=== PATIENT | male | born 1960 | race American Indian/Alaskan Native ===

== ENCOUNTER 2020-04-23 17:56 | Emergency (ER) | payer OTHER ==
[2020-04-23 18:11] VITALS: BP 147/112
[2020-04-23 20:10] LABS: Basophils # (Auto) 0.1 K/mm3 (0.0-0.1); Eosinophils % (Auto) 0.9 % (0.0-4.3); Hematocrit 41.4 % (35.5-45.6); Lymphocytes # (Auto) 1.5 K/mm3 (1.2-5.4); Lymphocytes % (Auto) 29.8 % (13.4-35.0); Mean Corpuscular HGB Conc 34 % (32-34); Mean Corpuscular Volume 90 fl (84-94); Monocytes # (Auto) 0.3 K/mm3 (0.0-0.8); Monocytes % (Auto) 6.3 % (0.0-7.3); Platelet Count 276 K/mm3 (140-440); Red Blood Count 4.61 M/mm3 (3.65-5.03); Red Cell Distribution Width 12.9 % (13.2-15.2)
[2020-04-23 20:31] LABS: BUN/Creatinine Ratio 7; Blood Urea Nitrogen 6 mg/dL (9-20); Calcium 9.9 mg/dL (8.4-10.2); Hemolysis Index 11
--- NOTE | 2020-04-23 20:53 | Emergency Department Report ---
ED General Adult HPI - General Chief complaint: Extremity Problem,Nontraumatic Stated complaint: SWELLING IN RT ARM,LEFT SIDED BODY PAIN Time Seen by Provider: 04/23/20 18:45 Source: patient Mode of arrival: Ambulatory Limitations: No Limitations - History of Present Illness Initial comments: Patient is a 60-year-old male presents emergency room with complaints of lymph nodes present to the left side of the neck have been there for a couple of days. He states it is causing pain. He denies any fever. He denies any vomiting, diarrhea, sore throat, difficulty breathing. Patient states that he also has swelling present to his intermittently for the last couple of years, he states he has had it drained a few times but it just keeps coming back. He denies any past medical history. No allergies to medications. - Related Data Previous Rx's Medication Instructions Recorded Last Taken Type Amoxicillin/Potassium Clav 1 each PO BID 10 Days #20 tablet 04/23/20 Unknown Rx [Augmentin 875-125 Tablet] Naproxen [EC-Naprosyn] 500 mg PO BID PRN #14 tablet. 04/23/20 Unknown Rx Prednisone [predniSONE 10 mg 10 mg PO .TAPER #1 tab.ds.pk 04/23/20 Unknown Rx (6-Day Pack, 21 Tabs)] Allergies Allergy/AdvReac Type Severity Reaction Status Date / Time No Known Allergies Allergy Verified 04/23/20 18:08 ED Review of Systems ROS: Stated complaint: SWELLING IN RT ARM,LEFT SIDED BODY PAIN Other details as noted in HPI Comment: All other systems reviewed and negative ED Past Medical Hx - Past Medical History Previous Medical History?: No - Surgical History Past Surgical History?: No - Social History Smoking Status: Current Every Day Smoker Substance Use Type: Alcohol - Medications Home Medications: Home Medications Medication Instructions Recorded Confirmed Last Taken Type Amoxicillin/Potassium Clav 1 each PO BID 10 Days #20 tablet 04/23/20 Unknown Rx [Augmentin 875-125 Tablet] Naproxen [EC-Naprosyn] 500 mg PO BID PRN #14 tablet. 04/23/20 Unknown Rx Prednisone [predniSONE 10 mg 10 mg PO .TAPER #1 tab.ds.pk 04/23/20 Unknown Rx (6-Day Pack, 21 Tabs)] ED Physical Exam - General Limitations: No Limitations General appearance: alert, in no apparent distress - Head Head exam: Present: atraumatic, normocephalic - Eye Eye exam: Present: normal appearance - ENT ENT exam: Present: normal orophraynx, mucous membranes moist - Neck Neck exam: Present: lymphadenopathy (two anterior cervical LAD with ttp, no erythema, no increased warmth, no fluctuance) - Respiratory Respiratory exam: Present: normal lung sounds bilaterally. Absent: respiratory distress, wheezes, rales, rhonchi, stridor, chest wall tenderness, accessory muscle use, decreased breath sounds, prolonged expiratory - Cardiovascular Cardiovascular Exam: Present: regular rate, normal rhythm, normal heart sounds. Absent: systolic murmur, diastolic murmur, rubs, gallop - Extremities Exam Extremities exam: Present: other (3 cm area of edema present to the right lateral elbow, no erythema, no increased warmth, FROM of the LUE, no ttp, neurovascularly intact) - Neurological Exam Neurological exam: Present: alert, oriented X3 - Psychiatric Psychiatric exam: Present: normal affect, normal mood - Skin Skin exam: Present: warm, dry ED Course Vital Signs 04/23/20 18:09 Temperature 98.1 F Pulse Rate 87 Respiratory 17 Rate Blood Pressure 147/112 O2 Sat by Pulse 99 Oximetry ED Medical Decision Making - Lab Data Result diagrams: 04/23/20 19:57 04/23/20 19:57 Lab Results 04/23/20 04/23/20 Range/Units 19:57 19:57 WBC 4.9 (4.5-11.0) K/mm3 RBC 4.61 (3.65-5.03) M/mm3 Hgb 14.0 (11.8-15.2) gm/dl Hct 41.4 (35.5-45.6) % MCV 90 (84-94) fl MCH 31 (28-32) pg MCHC 34 (32-34) % RDW 12.9 L (13.2-15.2) % Plt Count 276 (140-440) K/mm3 Lymph % (Auto) 29.8 (13.4-35.0) % Greer % (Auto) 6.3 (0.0-7.3) % Eos % (Auto) 0.9 (0.0-4.3) % Baso % (Auto) 1.0 (0.0-1.8) % Lymph # 1.5 (1.2-5.4) K/mm3 Greer # 0.3 (0.0-0.8) K/mm3 Eos # 0.0 (0.0-0.4) K/mm3 Baso # 0.1 (0.0-0.1) K/mm3 Seg Neutrophils % 62.0 (40.0-70.0) % Seg Neutrophils # 3.1 (1.8-7.7) K/mm3 Sodium 139 (137-145) mmol/L Potassium 4.3 (3.6-5.0) mmol/L Chloride 101.9 (98-107) mmol/L Carbon Dioxide 26 (22-30) mmol/L Anion Gap 15 mmol/L BUN 6 L (9-20) mg/dL Creatinine 0.9 (0.8-1.3) mg/dL Estimated GFR > 60 ml/min BUN/Creatinine Ratio 7 % Glucose 107 H (75-100) mg/dL Calcium 9.9 (8.4-10.2) mg/dL C-Reactive Protein 0.20 (0.00-1.30) mg/dL - Medical Decision Making Patient is a 60-year-old male presents emergency room with complaints of lymph nodes present to the left side of the neck have been there for a couple of days. He states it is causing pain. He denies any fever. He denies any vomiting, diarrhea, sore throat, difficulty breathing. Patient states that he also has swelling present to his intermittently for the last couple of years, he states he has had it drained a few times but it just keeps coming back. He denies any past medical history. No allergies to medications. on exam: two anterior cervical LAD with ttp, no erythema, no increased warmth, no fluctuance, 3 cm area of edema present to the right lateral elbow, no erythema, no increased war mth, FROM of the LUE, no ttp, neurovascularly intact. Labs are normal. Examination consistent with lymphadenitis. Also appears to have a fluid-filled cyst most likely serous fluid that does not appear to be infected, there is no increased warmth, no redness, no drainage, patient states he has had for multiple years now and has had drainage done several times but it just comes back, it appears patient most likely need surgical excision performed by a surgeon. Patient will be referred to a general surgeon for possible lymph node biopsy and for cyst excision. Patient given prescription for Augmentin, prednisone, and naproxen. Discussed strict return precautions with patient. Advised patient Please take medication as prescribed. Please follow-up with general surgery to see if you need a lymph node biopsy and for removal of the cyst present to your elbow. Return to the emergency room immediately for any new or worsening symptoms. Critical care attestation.: If time is entered above; I have spent that time in minutes in the direct care of this critically ill patient, excluding procedure time. ED Disposition Clinical Impression: Lymphadenitis, Synovial cyst of elbow Disposition: - TO HOME OR SELFCARE Is pt being admited?: No Does the pt Need Aspirin: No Condition: Stable Instructions: Lymphadenopathy (ED) Additional Instructions: Please take medication as prescribed. Please follow-up with general surgery to see if you need a lymph node biopsy and for removal of the cyst present to your elbow. Return to the emergency room immediately for any new or worsening symptoms. Prescriptions: Amoxicillin/Potassium Clav [Augmentin 875-125 Tablet] 1 each PO BID 10 Days #20 tablet Naproxen [EC-Naprosyn] 500 mg PO BID PRN #14 tablet. PRYvonne Reason: pain Prednisone [predniSONE 10 mg (6-Day Pack, 21 Tabs)] 10 mg PO .TAPER #1 tab.pk Referrals: PRIMARY CARE, [Primary Care Provider] - 2-3 Days MARCOS PINA DO [Staff Physician] - 2-3 Days Time of Disposition: 20:51 Print Language: BRUNEIAN
== END 2020-04-23 21:11 | disposition home or self-care (01) ==
LOC: ED 17:56
DX: I88.9 Nonspecific lymphadenitis, unspecified (principal); M71.321 Other bursal cyst, right elbow; F17.200 Nicotine dependence, unspecified, uncomplicated; Z98.890 Other specified postprocedural states; Z79.899 Other long term (current) drug therapy
CPT/HCPCS: 36415; 80048; 85025; 86140; 99283

== ENCOUNTER 2020-05-12 06:25 | Day surgery (SDC) | payer OTHER ==
[2020-05-12] MEDS ORDERED: BACTERIOSTATIC SODIUM CHLORIDE 0.9% 30 ML VIAL INFILTRATI ONE (06:46)
[2020-05-12] MEDS ORDERED: LACTATED RINGERS 1,000 ML ONE (06:46)
[2020-05-12] MEDS ORDERED: LACTATED RINGERS 1,000 ML IV SCH (07:00)
--- NOTE | 2020-05-12 07:56 | Anesthesia Consultation ---
Anesthesia Consult and Med Hx Date of service: 05/12/20 - Airway Anesthetic Teeth Evaluation: Good ROM Head & Neck: Adequate Mental/Hyoid Distance: Adequate Mallampati Class: Class II - Pre-Operative Health Status ASA Pre-Surgery Classification: ASA2 Proposed Anesthetic Plan: MAC - Pulmonary Hx Smoking: Yes (SINCE 2010; 5CIG SOME DAYS) Hx Asthma: No Hx Respiratory Symptoms: No SOB: No COPD: No Home Oxygen Therapy: No Hx Pneumonia: No Hx Sleep Apnea: No - Cardiovascular System Hx Hypertension: No Hx Coronary Artery Disease: No Hx Heart Attack/AMI: No Hx Angina: No Hx Percutaneous Transluminal Coronary Angioplasty (PTCA): No Hx Cardia Arrhythmia: No Hx Pacemaker: No Hx Internal Defibrillator: No Hx Valvular Heart Disease: No Hx Heart Murmur: No Hx Peripheral Vascular Disease: No - Central Nervous System Hx Neuromuscular Disorder: No Hx Seizures: No CVA: No Hx Back Pain: No Hx Psychiatric Problems: No - Gastrointestinal Hx Ulcer: No Hx Gastroesophageal Reflux Disease: No - Endocrine Hx Renal Disease: No Hx End Stage Renal Disease: No Hx Cirrhosis: No Hx Liver Disease: No Hx Insulin Dependent Diabetes: No Hx Non-Insulin Dependent Diabetes: No Hx Thyroid Disease: No Hx Hypothyroidism: No Hx Hyperthyroidism: No - Hematic Hx Anemia: No Hx Sickle Cell Disease: No - Other Systems Hx Alcohol Use: Yes Hx Substance Use: Yes (MARIJUANA) Hx Cancer: No Hx Obesity: No
--- NOTE | 2020-05-12 07:57 | Anesthesia Day of Surgery ---
Anesthesia Day of Surgery - Day of Surgery Patient Examined: Yes Patient H&P Reviewed: Yes Patient is NPO: Yes
[2020-05-12] MEDS ORDERED: LIDOCAINE MPF (2%) 20 MG/1 ML VIAL 5 ML ONE (08:32)
[2020-05-12] MEDS ORDERED: propofoL 200 MG/20 ML VIAL IV ONE ×3 (08:32→09:39)
[2020-05-12] MEDS ORDERED: GLYCOPYRROLATE 0.4 MG/2 ML INJ ONE (08:32)
[2020-05-12] MEDS ORDERED: KETAMINE/STERILE WATER 50 MG/ML SYRINGE ONE (08:32)
[2020-05-12] MEDS ORDERED: fentaNYL 100 MCG/2 ML INJ ONE (08:32)
[2020-05-12] MEDS ORDERED: PHENYLEPHRINE/NS 1,000 MCG/10 ML SYRINGE (OR USE) IV ONE (08:32)
[2020-05-12] MEDS ORDERED: MIDAZOLAM 2 MG/2 ML INJ ONE (08:32)
[2020-05-12] MEDS ORDERED: LIDOCAINE (1%) 10 MG/1 ML VIAL 20 ML MDV ONE ×2 (09:02→09:24)
[2020-05-12] MEDS ORDERED: BUPIVACAINE/PF (0.25%) 2.5 MG/ML 30 ML VIAL INFILTRATI ONE ×2 (09:02→09:23)
[2020-05-12] MEDS ORDERED: LIDOCAINE (1%) 10 MG/1 ML VIAL 20 ML MDV INFILTRATI ONE (09:23)
[2020-05-12] MEDS ORDERED: SODIUM CHLORIDE 0.9% IRR 1,500 ML BOTTLE IR ONE (09:24)
[2020-05-12] MEDS ORDERED: BUPIVACAINE-EPINEPHRINE/PF 0.5%-1:200,000 (30 ML) VIAL INFILTRATI ONE (09:25)
--- NOTE | 2020-05-12 10:01 | Short Stay Summary ---
Short Stay Documentation Date of service: 05/12/20 - History Principal diagnosis: soft tissue mass right elbow H&P: obtained from office - Allergies and Medications Current Medications: Allergies No Known Allergies Allergy (Verified 05/06/20 10:21) Home Medications Medication Instructions Recorded Confirmed Last Taken Type Amoxicillin/Potassium Clav 1 each PO BID 10 Days #20 tablet 04/23/20 05/12/20 05/11/20 08:00 Rx [Augmentin 875-125 Tablet] Active Medications Lactated Ringer's (Lactated Ringers) 1,000 mls @ 75 mls/hr IV DIRECT ROBERTH Last Admin: 05/12/20 07:15 Dose: 75 mls/hr Documented by: - Brief post op/procedure progress note Date of procedure: 05/12/20 Pre-op diagnosis: soft tissue mass right elbow Post-op diagnosis: same Procedure: excision soft tissue mass right arm Anesthesia: MAC, local Findings: 8.5 cm fatty mass consistent with lipoma Surgeon: MARCOS PINA Estimated blood loss: minimal Pathology: list (soft tissue mass right arm) Specimen disposition: to lab Condition: stable - Hospital course Hospital course: Pt observed in PACU and discharged to home in stable condition when criteria met. - Disposition Condition at discharge: Good Short Stay Discharge Plan Activity: other (no heavy lifting with right arm) Diet: regular Wound: open to air, per your surgeon's advice Additional Instructions: SEE PRINTED DISCHARGE INSTRUCTIONS Follow up with: PRIMARY CARE,MD [Primary Care Provider] - 7 Days MARCOS PINA DO [Staff Physician] - 14 Days Prescriptions: HYDROcodone/APAP 5-325 [Dewy Rose 5/325] 1 each PO Q6HR PRN #10 tablet PRN Reason: Pain
[2020-05-12 10:35] VITALS: BP 144/77
--- NOTE | 2020-05-12 13:54 | Post Anesthesia Evaluation ---
- Post Anesthesia Evaluation Patient Participated: Yes Airway Patent: Yes Stable Respiratory Function: Yes Nausea/Vomiting: No Temp > 96.8F: Yes Pain Manageable: Yes Adequeate Hydration: Yes Anesthesia Complications: No Block Receding Appropriately: Not Applicable Patient on Ventilator: No
--- NOTE | 2020-05-12 16:05 | Operative Report ---
Operative Report Operative Report: Date of procedure: 05/12/20 Pre-op diagnosis: soft tissue mass right elbow Post-op diagnosis: same Procedure: excision soft tissue mass right arm Anesthesia: MAC, local Findings: 8.5 cm fatty mass consistent with lipoma Surgeon: MARCOS PINA Estimated blood loss: minimal Pathology: list (soft tissue mass right arm) Specimen disposition: to lab Condition: stable Hospital course: Pt observed in PACU and discharged to home in stable condition when criteria met. HPI and indication: Patient is a 60-year-old male with a growth on his right arm near the elbow. The patient had stated this was present for very long time and presented to the surgery clinic for evaluation for possible excision. The mass had grown in size over the years but was not bothersome to the patient. It was recommended that the mass be excised due to its growth in size. All risk, benefits, alternatives to surgery were discussed with the patient questions answered. Consent was obtained for excision of mass on the right arm. Procedure in detail: The patient was identified the preoperative area, taken back to the operating room, placed on the operating room table in supine position. After anesthesia was induced the right arm was circumferentially prepped and draped in the usual sterile fashion. A timeout was performed. Local anesthetic infiltrated to the skin at the intended incision site. A longitudinal incision was made in the axis of the arm using a 15 blade. The dissection was then carried down through the skin and subcutaneous tissue using Bovie electrocautery until the mass was encountered. The mass was circumferentially, meticulously dissected free from the surrounding capsule and underlying tissue. There were no nerves or blood vessels that were encountered during the dissection. The mass did extend to the level of the muscle and was carefully from the underlying muscle using a combination of blunt dissection with a hemostat and electrocautery. Once the entire mass was circumferentially dissected it was transected from the base and brought out of the wound. This was measured at 8.5 cm in the longest axis and was consistent with a lipoma. The superior margin was marked with a short stitch the lateral margin was marked with a long stitch with 2 tails and the deep margin was marked with a stitch with 1 tail. The mass was passed off the table as a specimen. The wound was then irrigated and hemostasis carefully achieved using electrocautery and direct pressure. The wound was once again irrigated and hemostasis ensured. Milly powder was sprayed into the wound bed. The incision was then closed in a layered fashion. The deep layer was closed with interrupted 3-0 Vicryl sutures. The skin was approximated using a running 4-0 Monocryl subcuticular stitch and skin glue. After the glue was dry a 4 x 4 compression dressing was applied and secured with an Rainer wrap. At the end of the case, all sponge, instrument, sharp counts were correct x2. The patient was awoken from anesthesia and taken to PACU in stable condition.
== END 2020-05-12 10:55 | disposition home or self-care (01) ==
LOC: OR 06:25
PROVIDERS: ATTEND Surgery
DX: R22.31 Localized swelling, mass and lump, right upper limb (principal); M79.89 Other specified soft tissue disorders; D17.21 Benign lipomatous neoplasm of skin and subcutaneous tissue of right arm; F17.210 Nicotine dependence, cigarettes, uncomplicated; Z20.828 Contact with and (suspected) exposure to other viral communicable diseases; Z72.89 Other problems related to lifestyle; Z80.3 Family history of malignant neoplasm of breast; Z98.890 Other specified postprocedural states; Z79.899 Other long term (current) drug therapy
CPT/HCPCS: 88304; 88307; J2250; J2370; J2704; J3010; J3490; J7120; U0003-CS